=== PATIENT | female | born 1945 | race Caucasian/White ===

== ENCOUNTER → 2016-07-05 | Outpatient (CLI) | payer MEDICARE, OTHER ==
[~2016-07-05] MED LIST: HCTZ 25MG TAB25 MG PO; MOBIC15 MG PO; OMEGA-3 1000 MG1 CAP PO; PRINIVIL20 MG PO; SYNTHROID0.1 MG/TAB PO
== END ==
LOC: MC.RAD 09:56
DX: Z12.31 Encounter for screening mammogram for malignant neoplasm of breast (principal); R92.1 Mammographic calcification found on diagnostic imaging of breast

== ENCOUNTER 2017-01-05 19:45 | Emergency (ER) | payer MEDICARE, OTHER ==
[~2017-01-05] VITALS: Ht 162.6 cm; Wt 105.0 kg
[2017-01-05 19:48] VITALS: TEMP 98.2
[2017-01-05] MEDS ORDERED: HCTZ 25MG TAB25 MG PO (19:52)
[2017-01-05] MEDS ORDERED: PRINIVIL20 MG PO (19:52)
[2017-01-05] MEDS ORDERED: SYNTHROID0.1 MG/TAB PO (19:52)
[2017-01-05] MEDS ORDERED: OMEGA-3 1000 MG1 CAP PO (19:52)
[2017-01-05] MEDS ORDERED: MOBIC15 MG PO (19:52)
[2017-01-05 21:28] VITALS: BP 168/100; PULSE 86
== END 2017-01-05 21:25 | disposition home or self-care (01) ==
LOC: COL.ER 19:45
DX: S09.90XA Unspecified injury of head, initial encounter (principal); S00.12XA Contusion of left eyelid and periocular area, initial encounter; S01.81XA Laceration without foreign body of other part of head, initial encounter; W01.198A Fall on same level from slipping, tripping and stumbling with subsequent striking against other object, initial encounter; Y92.009 Unspecified place in unspecified non-institutional (private) residence as the place of occurrence of the external cause; I10 Essential (primary) hypertension; E03.9 Hypothyroidism, unspecified; M25.532 Pain in left wrist; M19.90 Unspecified osteoarthritis, unspecified site; M54.2 Cervicalgia

== ENCOUNTER → 2019-01-09 | Outpatient (CLI) | payer MEDICARE, OTHER | LOC: MC.RAD 16:00 | DX: Z12.31 Encounter for screening mammogram for malignant neoplasm of breast (principal) ==

== ENCOUNTER 2020-08-12 16:56 | Emergency (ER) | payer MEDICARE, OTHER ==
[~2020-08-12] VITALS: Ht 162.6 cm; Wt 99.5 kg
[2020-08-12 17:32] VITALS: TEMP 98.6
[2020-08-12 18:01] LABS: BASO # 0.1 (0.0-0.2); BASO % 1.2 % (0.0-2.0); EOS # 0.1 (0.0-0.7); EOS % 2.4 % (0-4.0); GRAN # 3.8 (1.4-6.5); GRAN % 65.3 % (42.2-75.2); HEMATOCRIT 39.7 % (37.0-47.0); HEMOGLOBIN 13.2 g/dl (12.5-16.0); LYMPH # 1.2 (1.2-3.4); LYMPH % 21.4 % (20.0-51.0); MEAN CELL VOLUME 104 fl (80.0-100.0); MEAN CORPUSCULAR HEMOGLOBIN 35 pg (27.0-31.0); MEAN CORPUSCULAR HGB CONC 33 g/dl (33.0-37.0); MEAN PLATELET VOLUME 8.9 fl (7.4-10.4); MONO # 0.6 (0.1-0.6); MONO % 9.5 % (1.7-9.3); PLATELET COUNT 250 K/mm3 (130-400); RED BLOOD COUNT 3.82 M/mm3 (4.10-5.30); REDCELL DISTRIBUTION WIDTH-CV 12.1 % (11.5-14.5)
[2020-08-12 18:08] LABS: INR 0.9 (0.8-3.0); PROTHROMBIN TIME 10.4 SECONDS (9.7-12.8)
[2020-08-12 18:11] LABS: ALANINE AMINOTRANSFERASE 54 U/L (4-34); ALBUMIN 4.4 gm/dL (3.5-5.0); ALKALINE PHOSPHATASE 65 U/L (50-136); ANION GAP 7 mmol/L (7-16); AST,SGOT 38 U/L (15-37); BILIRUBIN,TOTAL 0.4 mg/dL (0.0-1.0); BLOOD UREA NITROGEN 25 mg/dL (7-17); CALCIUM 10.3 mg/dL (8.4-10.2); CARBON DIOXIDE 27 mmol/L (22-30); CHLORIDE 104 mmol/L (98-107); CREATININE, serum 0.62 (0.52-1.25); GLUCOSE 123 mg/dL (74-106); POTASSIUM 3.8 mmol/L (3.4-5.0); SODIUM 138 mmol/L (137-145); TOTAL PROTEIN 7.5 gm/dL (6.4-8.2)
[2020-08-12 18:24] LABS: TROPONIN-I < 0.012 ng/mL (0.000-0.035)
[2020-08-12 19:43] VITALS: BP 164/95; PULSE 76
== END 2020-08-12 19:48 | disposition home or self-care (01) ==
LOC: COL.ER 16:56
PROVIDERS: Physician Assistant
DX: I48.91 Unspecified atrial fibrillation (principal); I10 Essential (primary) hypertension

== ENCOUNTER 2024-04-13 20:07 | Emergency (ER) | payer MEDICARE, OTHER ==
[~2024-04-13] VITALS: Ht 157.5 cm; Wt 90.9 kg
[2024-04-13 20:12] VITALS: TEMP 98.3
[2024-04-13] MEDS ORDERED: Cephalexin 500 MG CAP PO ONE (22:45)
[2024-04-13] MEDS ORDERED: CEPHALEXIN500 M1 PO (22:49)
[2024-04-13 23:19] VITALS: BP 162/91; PULSE 78
== END 2024-04-13 23:15 | disposition home or self-care (01) ==
LOC: COL.ER 20:07
DX: S02.2XXA Fracture of nasal bones, initial encounter for closed fracture (principal); S51.812A Laceration without foreign body of left forearm, initial encounter; S80.01XA Contusion of right knee, initial encounter; W19.XXXA Unspecified fall, initial encounter; Y92.009 Unspecified place in unspecified non-institutional (private) residence as the place of occurrence of the external cause